=== PATIENT | female | born 1960 | race Caucasian/White ===

== ENCOUNTER 2019-03-27 10:58 | Day surgery (SDC) | payer OTHER ==
[2019-03-27] MEDS ORDERED: MIDAZOLAM 1 MG/ML 2 ML INJ ×2 (12:39→12:40)
[2019-03-27] MEDS ORDERED: FENTAnyl 50 MCG/ML VIAL (12:40)
== END 2019-03-27 13:54 | disposition home or self-care (01) ==
LOC: GIL 10:58
DX: Z12.11 Encounter for screening for malignant neoplasm of colon (principal); K64.8 Other hemorrhoids; K57.30 Diverticulosis of large intestine without perforation or abscess without bleeding
CPT/HCPCS: 45378